=== PATIENT | female | born 1980 ===

== ENCOUNTER 2017-08-29 10:29 | Emergency (ER) | payer MEDICAID ==
[2017-08-29 10:48] VITALS: BP 122/80; PULSE 77; RESP 18; TEMP 98.7; O2SAT 100
[2017-08-29] MEDS ORDERED: Sodium Chloride 0.9% 1,000 ML IV ONE (11:58)
[2017-08-29] MEDS ORDERED: Sodium Chloride 0.9% 1,000 ML ONE (12:39)
--- NOTE | 2017-08-29 13:45 | C.PDOC ---
History Of Present Illness 37-year-old female, presents to the emergency department with complaints of dizziness described as room spinning. Patient notes a Hx of dizziness x6 months. Patient reports she was seen by her doctor, who prescribed Meclizine that she takes with relief. Patient ran out of her medication, and states her dizziness returned this morning, associated with nausea and vomiting. Dizziness worsens with movement. Denies numbness/weakness, fevers, shortness of breath, chest pain or any other associated symptoms. No other complaints at this time. Time Seen by Provider: 08/29/17 11:10 Chief Complaint (Nursing): Dizziness/Lightheaded History Per: Patient History/Exam Limitations: no limitations Current Symptoms Are (Timing): Still Present Past Medical History Reviewed: Historical Data, Nursing Documentation, Vital Signs Vital Signs: Last Vital Signs Temp 98.7 F 08/29/17 10:44 Pulse 77 08/29/17 10:44 Resp 18 08/29/17 10:44 BP 122/80 08/29/17 10:44 Pulse Ox 100 08/29/17 13:52 Family History: States: No Known Family Hx - Social History Hx Alcohol Use: No Hx Substance Use: No - Immunization History Hx Tetanus Toxoid Vaccination: No Hx Influenza Vaccination: No Hx Pneumococcal Vaccination: No Review Of Systems Constitutional: Negative for: Fever, Chills Respiratory: Negative for: Shortness of Breath Musculoskeletal: Negative for: Neck Pain, Back Pain Skin: Negative for: Rash Neurological: Positive for: Dizziness. Negative for: Weakness, Numbness, Headache Physical Exam - Physical Exam Appears: Well, Non-toxic, No Acute Distress Skin: Normal Color, Warm, Dry, No Rash Head: Atraumatic, Normacephalic Eye(s): bilateral: Normal Inspection (no nystagmus), PERRL, EOMI Nose: Normal Oral Mucosa: Moist Lips: Normal Appearing Neck: Normal ROM Cardiovascular: Rhythm Regular, No Murmur Respiratory: Normal Breath Sounds, No Decreased Breath Sounds, No Accessory Muscle Use Gastrointestinal/Abdominal: Soft, No Tenderness Extremity: Normal ROM Neurological/Psych: Oriented x3, Normal Speech ED Course And Treatment O2 Sat by Pulse Oximetry: 100 Medical Decision Making Medical Decision Making: Pt eloped from ER after evaluation. No labs drawn, pt was not given any meds. Disposition Counseled Patient/Family Regarding: Studies Performed, Diagnosis - Disposition Disposition: ELOPEMENT - ER ONLY Disposition Time: 13:30 Condition: STABLE Forms: [facility] ([place]) - Clinical Impression Clinical Impression: Dizziness - Scribe Statement The provider has reviewed the documentation as recorded by the Scribe (Zoey Ferreira) All medical record entries made by the Scribe were at my direction and personally dictated by me. I have reviewed the chart and agree that the record accurately reflects my personal performance of the history, physical exam, medical decision making, and the department course for this patient. I have also personally directed, reviewed, and agree with the discharge instructions and disposition.
== END 2017-08-29 11:40 | disposition left against medical advice (07) ==
LOC: C.ER 10:29
DX: R42 Dizziness and giddiness (principal)